=== PATIENT | male | born 1990 | race Caucasian/White ===

== ENCOUNTER 2020-05-25 06:23 | Emergency (ER) | payer OTHER ==
[~2020-05-25] VITALS: Ht 167.6 cm; Wt 79.4 kg
[~2020-05-25 06:23] MED LIST: OXYACE5T PO; PENVK500 PO; PROACE100 PO; RXPROACE PO; STRATTERA; SUBOXONE; TRAZADONE; ZIPR20 PO
[2020-05-25] MEDS ORDERED: BUPRENORPHIN-N1 EAC1 (06:39)
[2020-05-25] MEDS ORDERED: IBUP600 PO (07:42)
== END 2020-05-25 07:52 | disposition home or self-care (01) ==
LOC: ER 06:23
DX: S67.21XA Crushing injury of right hand, initial encounter (principal); F17.200 Nicotine dependence, unspecified, uncomplicated; Z91.030 Bee allergy status; W23.0XXA Caught, crushed, jammed, or pinched between moving objects, initial encounter
CPT/HCPCS: 73110; 73130; 96372; 99283-25; J1885

== ENCOUNTER 2020-11-29 12:27 | Day surgery (SDC) | payer OTHER ==
[~2020-11-29] VITALS: Ht 167.6 cm; Wt 71.8 kg
[~2020-11-29 12:27] MED LIST changes: +BUPRENO-NALOX1 EAC2 SL; +BUPRENORPHIN-N1 EAC1; +EPINEPHRIN0.3 MG/0.1 IM; +IBUP600 PO; +SUBOXONE 8 MG-1 EACH SL; +TRAZ100 PO
== END 2020-11-29 14:45 | disposition home or self-care (01) ==
LOC: ORSCSDS 12:27
PROVIDERS: Orthopaedic Surgery
PROC: 01N54ZZ Release Median Nerve, Percutaneous Endoscopic Approach (ICD-10-PCS; principal; 2020-11-29 13:30)
DX: G56.01 Carpal tunnel syndrome, right upper limb (principal); F17.210 Nicotine dependence, cigarettes, uncomplicated; Z79.899 Other long term (current) drug therapy
CPT/HCPCS: J2250; J3010; J7120

== ENCOUNTER 2022-03-06 06:06 | Day surgery (SDC) | payer OTHER ==
[~2022-03-06] VITALS: Ht 167.6 cm; Wt 80.7 kg
--- NOTE | 2022-03-06 07:38 | NUR ---
03/06/22 0738 Bindu Garcia BLOCK AT 0724
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
== END 2022-03-06 08:27 | disposition home or self-care (01) ==
LOC: ORSCSDS 06:06
PROVIDERS: Orthopaedic Surgery
PROC: 01N54ZZ Release Median Nerve, Percutaneous Endoscopic Approach (ICD-10-PCS; principal; 2022-03-06 07:30)
DX: G56.02 Carpal tunnel syndrome, left upper limb (principal); F17.210 Nicotine dependence, cigarettes, uncomplicated; Z79.899 Other long term (current) drug therapy
CPT/HCPCS: J2250; J3010; J7120

== ENCOUNTER 2022-12-25 13:49 | Emergency (ER) | payer OTHER ==
[~2022-12-25] VITALS: Ht 175.3 cm; Wt 79.4 kg
[2022-12-25 14:27] LABS: BASOPHILS ABSOLUTE AUTO 0.09 K/mm3 (0.00-0.23); BASOPHILS PERCENT AUTO 1 % (0-2); EOSINOPHILS ABSOLUTE AUTO 0.23 K/mm3 (0.00-0.68); EOSINOPHILS PERCENT AUTO 2 % (0-6); Hematocrit 43.4 % (37.0-53.0); IMMATURE GRAN ABSOLUTE AUTO 0.06 K/mm3 (0.00-0.10); IMMATURE GRAN PERCENT AUTO 1 % (0-1); LYMPHOCYTES ABSOLUTE AUTO 1.92 K/mm3 (0.84-5.20); LYMPHOCYTES PERCENT AUTO 16 % (21-46); MONOCYTES ABSOLUTE AUTO 0.87 K/mm3 (0.16-1.47); MONOCYTES PERCENT AUTO 7 % (4-13); Mean Corpuscular HGB 31.1 pg (26.0-34.0); Mean Corpuscular HGB Conc 34.6 g/dL (31.5-36.5); Mean Corpuscular Volume 90 fL (80-100); Mean Platelet Volume 8.7 fL (9.1-12.4); NEUTROPHILS ABSOLUTE AUTO 8.53 K/mm3 (1.96-9.15); NEUTROPHILS PERCENT AUTO 73 % (41-73); Platelet Count 287 K/mm3 (150-400); RDW Coefficient Variation 12.3 % (11.7-14.2); RDW Standard Deviation 40.2 fL (35.1-46.3); Red Blood Cell Count 4.82 M/mm3 (4.30-5.90)
[2022-12-25 14:45] LABS: Albumin, Blood 4.4 g/dL (3.4-5.0); Albumin/Globulin Ratio 1.1 (0.8-1.8); Bilirubin, Total 0.3 mg/dL (0.1-1.0); Bun/Creatinine Ratio 21.3 (12.0-20.0); Calcium, Blood 9.2 mg/dL (8.5-10.1); Creatinine, Blood 0.94 mg/dL (0.60-1.20); Globulin, Blood 3.9 g/dL (2.2-4.0); Potassium, Blood 3.9 mmol/L (3.5-5.5); Total Protein, Blood 8.3 g/dL (6.4-8.2)
[2022-12-25 15:47] LABS: Source, Urine Clean Catch
[2022-12-25] MEDS ORDERED: UNISOM PM PAIN1 EACH PO (15:50)
[2022-12-25] MEDS ORDERED: MELATONINMAX10 MG PO (15:50)
[2022-12-25 15:53] LABS: Appearance, Urine Clear (Clear); Bilirubin, Urine Neg (Neg); Blood, Urine Neg (Neg); Color, Urine Yellow (P-Yellow); Glucose Qualitative, Urine Neg (Neg); Ketones, Urine Neg (Neg); Leukocyte Esterase, Urine Neg (Neg); Nitrite, Urine Neg (Neg); Protein, Urine Neg (Neg); Specific Gravity, Urine 1.015 (1.003-1.022); Urobilinogen, Urine NORM (Normal)
== END 2022-12-25 16:48 | disposition home or self-care (01) ==
LOC: ER 13:49
PROVIDERS: Student in an Organized Health Care Education/Training Program
DX: R10.9 Unspecified abdominal pain (principal); Z91.030 Bee allergy status; Z88.8 Allergy status to other drugs, medicaments and biological substances; Z79.899 Other long term (current) drug therapy
CPT/HCPCS: 36415; 80053; 81003; 85025; 96374; 99284-25; A9270; J1885

== ENCOUNTER 2023-10-19 16:27 | Emergency (ER) | payer OTHER ==
[~2023-10-19] VITALS: Ht 167.6 cm; Wt 75.8 kg
[~2023-10-19 16:27] MED LIST changes: +MELATONINMAX10 MG PO; +UNISOM PM PAIN1 EACH PO
[2023-10-19 17:38] LABS: Source, Urine Clean Catch
[2023-10-19 17:41] LABS: BASOPHILS ABSOLUTE AUTO 0.09 K/mm3 (0.00-0.23); BASOPHILS PERCENT AUTO 1 % (0-2); EOSINOPHILS ABSOLUTE AUTO 0.21 K/mm3 (0.00-0.68); EOSINOPHILS PERCENT AUTO 2 % (0-6); Hematocrit 44.2 % (37.0-53.0); Hemoglobin 15.4 g/dL (13.5-17.5); IMMATURE GRAN PERCENT AUTO 1 % (0-1); LYMPHOCYTES ABSOLUTE AUTO 2.37 K/mm3 (0.84-5.20); LYMPHOCYTES PERCENT AUTO 18 % (21-46); MONOCYTES ABSOLUTE AUTO 1.16 K/mm3 (0.16-1.47); MONOCYTES PERCENT AUTO 9 % (4-13); Mean Corpuscular HGB 31.7 pg (26.0-34.0); Mean Corpuscular HGB Conc 34.8 g/dL (31.5-36.5); Mean Corpuscular Volume 91 fL (80-100); Mean Platelet Volume 8.9 fL (9.1-12.4); NEUTROPHILS ABSOLUTE AUTO 9.65 K/mm3 (1.96-9.15); NEUTROPHILS PERCENT AUTO 71 % (41-73); Platelet Count 291 K/mm3 (150-400); RDW Coefficient Variation 12.2 % (11.7-14.2); RDW Standard Deviation 40.5 fL (35.1-46.3); Red Blood Cell Count 4.86 M/mm3 (4.30-5.90); White Blood Cell Count 13.58 K/mm3 (4.00-11.30)
[2023-10-19 17:43] LABS: Appearance, Urine Clear (Clear); Bilirubin, Urine Neg (Neg); Blood, Urine 2+ (Neg); Color, Urine Yellow (P-Yellow); Glucose Qualitative, Urine Neg (Neg); Ketones, Urine Neg (Neg); Leukocyte Esterase, Urine 1+ (Neg); Nitrite, Urine Neg (Neg); Protein, Urine Neg (Neg); Urobilinogen, Urine NORM (Normal)
[2023-10-19 17:53] LABS: Bacteria Mod /hpf; Squamous Epithelial Cells Not Seen /hpf (Few)
[2023-10-19 18:03] LABS: Albumin, Blood 4.2 g/dL (3.4-5.0); Albumin/Globulin Ratio 1.1 (0.8-1.8); Bilirubin, Total 0.2 mg/dL (0.1-1.0); Bun/Creatinine Ratio 18.5 (12.0-20.0); Calcium, Blood 9.5 mg/dL (8.5-10.1); Creatinine, Blood 0.97 mg/dL (0.60-1.20); Globulin, Blood 3.8 g/dL (2.2-4.0); Potassium, Blood 4.5 mmol/L (3.5-5.5)
[2023-10-19 18:24] VITALS: BP 150/81
[2023-10-19] MEDS ORDERED: TAMS.4ER PO (19:27)
[2023-10-19] MEDS ORDERED: CEPH500 PO (19:27)
== END 2023-10-19 19:40 | disposition home or self-care (01) ==
LOC: ER 16:27
PROVIDERS: Student in an Organized Health Care Education/Training Program
DX: N13.2 Hydronephrosis with renal and ureteral calculous obstruction (principal); F17.210 Nicotine dependence, cigarettes, uncomplicated; Z91.030 Bee allergy status
CPT/HCPCS: 74177; 80053; 81001; 83605; 85025; 87086; 96374-59; 96375; 96376; 99284-25; A9270; J0696; J1170; J1885; J2405; Q9967

== ENCOUNTER → 2025-01-06 | Outpatient (CLI) | payer OTHER ==
[~2025-01-06] MED LIST changes: +CEPH500 PO; +TAMS.4ER PO
[2025-01-09 11:34] LABS: CALPROTECTIN,FECAL 9 ug/g (<=49)
== END ==
LOC: LAB 05:23 → LAB SHORT 05:23
PROVIDERS: Physician Assistant Medical
DX: R10.84 Generalized abdominal pain (principal)
CPT/HCPCS: 83993